=== PATIENT | female | born 1990 | race Caucasian/White ===

== ENCOUNTER 2016-08-21 09:06 | Emergency (ER) | payer BC ==
[2016-08-21 10:11] VITALS: BP 116/65
--- NOTE | 2016-08-21 12:01 | UC ---
Kathy Ellison Matthew, scribed for Salome Nicholas DO on 08/21/16 at 1025 . Throat Pain/Nasal Brandon HPI - HPI Summary HPI Summary: A 26 y/o female presents to [facility] with constant, gradually worsening sore throat since 4 days ago. The pain is rated 5/10 in severity. Associated symptoms include intermittent sinus headache, ear ache - comes and goes bilaterally, sinus congestion, very mild cough, and rhinorrhea. The patient denies SOB, difficulty breathing, neck pain, nausea, vomiting, dysuria, abdominal pain, body aches, chest pain, and fever. 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 - History of Current Complaint Chief Complaint: UCRespiratory Stated Complaint: SINUS CONGESTION, AND EAR ACHE Time Seen by Provider: 08/21/16 09:56 Hx Obtained From: Patient Hx Last Menstrual Period: 08/01/16 Onset/Duration: Gradual Onset, Lasting Days - since 4 days ago, Still Present Severity: Moderate Pain Intensity: 5 Pain Scale Used: 0-10 Numeric Cough: Other: - mild Associated Signs & Symptoms: Positive: Dysphagia, Sinus Discomfort, Nasal Discharge, Other - ear ache, intermittent sinus headache, rhinorrhea. Negative : Drooling, Wheezing, Hoarseness, Fever, Vomiting - Epiglottits Risk Factors Epiglottis Risk Factors: Negative - Allergies/Home Medications Allergies/Adverse Reactions: Allergies Allergy/AdvReac Type Severity Reaction Status Date / Time Penicillins Allergy Hives Verified 08/21/16 10:11 Home Medications: Home Medications Bupropion HCl [Bupropion HCl ER] 08/21/16 [History] Sertraline HCl [Zoloft] 100 mg PO 08/21/16 [History] PMH/Surg Hx/FS Hx/Imm Hx Previously Healthy: Yes Respiratory History Of: Denies: Asthma Psychological History Of: Reports: Anxiety - Surgical History Surgical History: None - Family History Known Family History: Negative: Cardiac Disease, Hypertension, Diabetes - Social History 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 Alcohol Use: Occasionally Substance Use Type: None Smoking Status (MU): Never Smoked Tobacco Review of Systems Constitutional: Negative Skin: Negative Eyes: Negative ENT: Sore Throat, Ear Ache, Nasal Discharge, Other - Sinus Congestion Respiratory: Negative Cardiovascular: Negative Gastrointestinal: Negative Genitourinary: Negative Motor: Negative Neurovascular: Negative Musculoskeletal: Negative Neurological: Headache - Sinus headache Psychological: Negative All Other Systems Reviewed And Are Negative: Yes Physical Exam Triage Information Reviewed: Yes Appearance: Well-Appearing, No Pain Distress, Well-Nourished Vital Signs: Initial Vital Signs Temp 98.1 F 08/21/16 10:07 Pulse 70 08/21/16 10:07 Resp 18 08/21/16 10:07 BP 116/65 08/21/16 10:07 Pulse Ox 98 08/21/16 10:07 Vital Signs Reviewed: Yes Eyes: Positive: Conjunctiva Clear. Negative: Discharge ENT: Positive: Hearing grossly normal, Pharyngeal erythema, Nasal congestion, Nasal drainage, TMs normal, Tonsillar swelling. Negative: Tonsillar exudate, Trismus, Muffled/hoarse voice Dental Exam: Normal Neck: Positive: Supple, Nontender Respiratory: Positive: Lungs clear, Normal breath sounds, No respiratory distress, No accessory muscle use Cardiovascular: Positive: RRR, No Murmur Musculoskeletal Exam: Normal Neurological: Positive: Alert, Muscle Tone Normal Psychological Exam: Normal Psychological: Positive: Age Appropriate Behavior Skin Exam: Normal Skin: Positive: Other - warm, dry, normal color Throat Pain/Nasal Course/Dx - Differential Dx/Diagnosis Differential Diagnosis/HQI/PQRI: Pharyngitis, Sinusitis, Tonsillitis Provider Diagnoses: SINUSITIS Discharge - Discharge Plan Condition: Stable Disposition: HOME Prescriptions: Azithromycin TAB* [Zithromax TAB (Z-NICKY)*] 0 mg PO .SEE INSTRUCTIONS #6 tab Patient Education Materials: Sinusitis (ED) Referrals: Chuy Daugherty MD [Medical Doctor] - Additional Instructions: TRY USING THE NETTI POT IN THE MORNINGS DISCUSSED. YOU MUST ALWAYS USE CLEAN WATER. REMEMBER, POSTURE IS AN IMPORTANT FACTOR IN SINUS DRAINAGE. MOVE YOUR NECK, BREATHE. ANTIBIOTICS ARE NOT CURRENTLY INDICATED FOR YOUR CONDITION. HOWEVER IF YOUR SYMPTOMS WORSEN OR PERSIST FOR MORE THAN 3-5 DAYS, YOU CAN START THE FOLLOWING ANTIBIOTICS. AZITHROMYCIN: Azithromycin (Zithromax) is a broad spectrum antibiotic in the same class as erythromycin. It can treat a variety of bacterial infections, but is most frequently used for respiratory infections. Azithromycin is extremely long-lasting. It accumulates in body tissues and continues to kill bacteria for many days. In order to improve absorption, Azithromycin should be taken at least one hour before or two hours after a meal. It does not have the same strong tendency to upset the stomach as erythromycin and is usually very well tolerated. Patients who have had a rash or other true allergic reactions to erythromycin should not take this medication. Call if you develop gastrointestinal distress, severe diarrhea, rash, hives, itching, or shortness of breath. ANY TIME YOU TAKE AN ANTIBIOTIC, IT IS IMPORTANT TO REPLENISH THE BODY'S BALANCE OF "GOOD" BACTERIA BY EATING HIGH QUALITY CULTURED FOOD SUCH YOGURT, SAURKRAUT OR VAMSHI CHI AND/OR TAKING A PROBIOTIC SUPPLEMENT. The documentation as recorded by the Kathy maravilla Matthew accurately reflects the service I personally performed and the decisions made by me, Salome Nicholas DO.
== END 2016-08-21 11:56 | disposition home or self-care (01) ==
LOC: UCEAST 09:06
DX: J01.90 Acute sinusitis, unspecified (principal); B96.89 Other specified bacterial agents as the cause of diseases classified elsewhere; Z88.0 Allergy status to penicillin
CPT/HCPCS: 87651; 99202; G0463

== ENCOUNTER 2017-07-09 07:13 | Emergency (ER) | payer BC ==
[2017-07-09 08:04] VITALS: BP 122/76
[2017-07-09] MEDS ORDERED: Azithromycin TAB* 250 MG PO ONE (09:00)
--- NOTE | 2017-07-11 17:55 | UC ---
Progress - Progress Note Progress Note: Throat culture with normal chuyita only - no strep. See how rash is today - if still present, needs f/u with PCP and/or OBGYN.
--- NOTE | 2017-07-23 17:20 | UC ---
Julius Ellison Alfonso, scribed for Salome Nicholas DO on 07/09/17 at 0749 . General HPI - HPI Summary HPI Summary: This patient is a 27 year old F presenting to [facility] with a chief complaint of a head cold since 1 week ago. The patient rates the pain 6/10 in severity. Symptoms aggravated by nothing. Symptoms alleviated by rest. Patient reports sinus congestion, rhinorrhea, sore throat (since 3 days ago, worse since last night, pain with swallowing and eating), bumps on my face, pruritus (back of neck and shoulders), diarrhea (2 times last night and not today), sinus headache (yesterday morning-now resolved), nonproductive coughing, and hot flashes. Patient denies fever, chills, vag bleeding, visual changes, contractions, swelling of hands and feet, abdominal pain, N/V, CP, SOB, weakness , dizziness, swelling, and urinary symptoms. She is currently 13 weeks . She denies new foods, detergents, soaps, and pet contacts. - History of Current Complaint Chief Complaint: UCGeneralIllness Stated Complaint: SORE THROAT, CONGESTED, RASH Time Seen by Provider: 07/09/17 07:36 Hx Obtained From: Patient Onset/Duration: Gradual Onset, Lasting Weeks - 1, Still Present Timing: Constant Current Severity: Moderate Pain Intensity: 6 - /10 Aggravating: nothing Alleviating: rest Associated Signs & Symptoms: Positive: Other - sinus congestion, rhinorrhea, sore throat (since 3 days ago, worse since last night, pain with swallowing and eating), bumps on my face, pruritus (back of neck and shoulders), diarrhea (2 times last night and not today), headache (yesterday morningsinus- now resolved) , nonproductive coughing, and hot flashes. Patient denies fever, chills, blood in the stools, abdominal bloating, abdominal pain, N/V, CP, SOB, weakness, dizziness, swelling, and urinary symptoms. 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 [ Gummies/Dha & Fo 0.4-32.5 mg] 1 tab PO DAILY 11/27/17 [History Confirmed 07/09/17] PMH/Surg Hx/FS Hx/Imm Hx Previously Healthy: No Psychological History: Anxiety - Surgical History Surgical History: Yes Surgery Procedure, Year, and Place: [place] Teeth extracton 2006; Bilateral Tubes x 2 as child - Family History Known Family History: Positive: Hypertension - Mother Negative: Cardiac Disease, Diabetes - Social History Lives: With Family Alcohol Use: None Substance Use Type: None Smoking Status (MU): Never Smoked Tobacco - Immunization History Most Recent Influenza Vaccination: Not UTD Review of Systems Constitutional: Other - "a head cold," hot flashes; negative fever, chills Skin: Other - bumps on my face, pruritus (back of neck and shoulders) ENT: Other - sinus congestion, rhinorrhea, sore throat (since 3 days ago, worse since last night, pain with swallowing and eating) Respiratory: Cough, Other - Negative SOB Cardiovascular: Other - Negative CP Gastrointestinal: Diarrhea, Other - Negative blood in the stools, abd bloating, abd pain, N/V Genitourinary: Negative Musculoskeletal: Other: - Negative swelling Neurological: Headache, Other - Negative weakness, dizziness All Other Systems Reviewed And Are Negative: Yes Physical Exam Triage Information Reviewed: Yes Appearance: Well-Appearing, No Pain Distress, Well-Nourished Vital Signs: Initial Vital Signs Temp 99.5 F 07/09/17 07:20 Pulse 96 07/09/17 07:20 Resp 18 07/09/17 07:20 BP 134/78 07/09/17 07:20 Pulse Ox 99 07/09/17 07:20 Vital Signs Reviewed: Yes Eyes: Positive: Conjunctiva Clear. Negative: Discharge ENT: Positive: Hearing grossly normal, Pharyngeal erythema, Tonsillar swelling - mild. Negative: Tonsillar exudate, Trismus, Hoarse voice Neck exam: Normal Neck: Positive: Supple Respiratory: Positive: Lungs clear, Normal breath sounds, No respiratory distress, No accessory muscle use Cardiovascular: Positive: RRR, No Murmur Abdomen Description: Positive: Nontender, Soft. Negative: Distended, Guarding Bowel Sounds: Positive: Present Musculoskeletal Exam: Normal Neurological: Positive: Alert, Muscle Tone Normal Psychological Exam: Normal Psychological: Positive: Age Appropriate Behavior Skin: Positive: Other - Warm. Dry. Faint erythematous sandpapery rash at face and knee. Course/Dx - Course Course Of Treatment: Two group A rapid strep tests are both negative. Medications reviewed. Allergies reviewed. Consulted Dr. Jackson (OBGYN) at 0837 regarding the patients case and plan for care. He does not feel this is related, but states that if the case looks like strep and we are not entirely trusting of the rapid strep tests, we should treat the patient with abx and send for cultures. Patient will be discharged with prescription for Z- Girma, and follow up from PCP and OBGYN. The patient is agreeable with this plan. - Differential Dx - Multi-Symptom Provider Diagnoses: strep throat - Physician Notifications Discussed Patient Care With: Oskar Jackson Time Discussed With Above Provider: 08:37 Discharge - Discharge Plan Condition: Stable Disposition: HOME Prescriptions: Azithromycin TAB* [Zithromax TAB (Z-GIRMA) 250 mg #6 tabs] 250 mg PO DAILY #4 tab Patient Education Materials: Strep Throat (ED) Forms: *Work Release Referrals: Gayathri Casillas MD [Medical Doctor] - 1 Week Chuy Daugherty MD [Primary Care Provider] - 2 Days Additional Instructions: YOUR RAPID STREP TEST WAS NEGATIVE TWO TIMES. STILL YOUR RASH LOOKS LIKE STREP. SO WE ARE SENDING IN A CULTURE TO CONFIRM. WE DID SPEAK WITH THE RUBBER TUBING SPLICER FOR YOUR OB WHO SAID THAT YOUR SYMPTOMS DO NOT APPEAR TO BE RELATED. HOWEVER, IF THE CLINICAL PICTURE IS HIGHLY SUSPICIOUS FOR STREP, WE CAN TREAT YOU MORE PROACTIVELY BECAUSE YOU ARE . SO WE WILL START TREATMENT WHILE WE WAIT FOR CULTURE RESULTS. AZITHROMYCIN: Azithromycin (Zithromax) is a broad spectrum antibiotic in the same class as erythromycin. It can treat a variety of bacterial infections, but is most frequently used for respiratory infections. Azithromycin is extremely long-lasting. It accumulates in body tissues and continues to kill bacteria for many days. In order to improve absorption, Azithromycin should be taken at least one hour before or two hours after a meal. It does not have the same strong tendency to upset the stomach as erythromycin and is usually very well tolerated. Patients who have had a rash or other true allergic reactions to erythromycin should not take this medication. Call if you develop gastrointestinal distress, severe diarrhea, rash, hives, itching, or shortness of breath. ANYTIME YOU TAKE AN ANTIBIOTIC, IT IS IMPORTANT TO REPLENISH THE BODY'S SUPPLY OF "GOOD BACTERIA." YOU CAN GET GOOD BACTERIA FROM HIGH QUALITY CULTURED FOODS SUCH LOCAL YOGURT, SOUR KRAUT, VAMSHI JANI, NATURALLY FERMENTED PICKLES AND PROBIOTIC DRINKS. YOU CAN ALSO GET GOOD BACTERIA FROM A PROBIOTIC SUPPLEMENT. The documentation as recorded by the Julius maravilla Alfonso accurately reflects the service I personally performed and the decisions made by me, Salome Nicholas DO.
== END 2017-07-09 09:09 | disposition home or self-care (01) ==
LOC: UCEAST 07:13
DX: O26.891 Other specified pregnancy related conditions, first trimester (principal); J02.0 Streptococcal pharyngitis; Z3A.13 13 weeks gestation of pregnancy; Z88.0 Allergy status to penicillin; F41.9 Anxiety disorder, unspecified
CPT/HCPCS: 87070; 87651; 99212; A9270-GY; G0463

== ENCOUNTER 2017-12-18 18:56 | Inpatient (IN) | payer BC ==
[2017-12-18] MEDS ORDERED: Dinoprostone* 10 MG VAG.SUPP VAGINAL ONE (19:15)
--- NOTE | 2017-12-18 20:17 | PN ---
L&D Outpatient: Visit - Reproductive Information Estimated Due Date: 01/13/18 Gestational Age: 36 Weeks and 2 Days : 2 Para: 0 - Reason for Visit Visit Reason: Patient with an IUP at 36+ weeks EGA, sent to LD for cervical ripening in preparation for induction of labor. - Antepartal Records Antepartal Record: Reviewed, Complicated by: - Pre-eclampsia - Patient History Patient History Significant For: Depression /Anxiety Seasonal Allergies L&D Outpatient: ROS - Review of Systems Constitutional: Comfortable CV Complaint: No Respiratory: Shortness of Breath: No Gastrointestinal: No Nausea/Vomiting, Normal Bowel Movement Genitourinary: No Dysuria, No Bleeding, No Leaking Fluid Musculoskeletal: No Complaint Movement: Normal - No headaches, visual changes or abdominal pain. L&D Outpatient: Exam Vitals - Most Recent: Weigyht 215 lbs Height 5'4" Temp 99.1 BP 147/82 P 81 RR 22 Pox 96% RA - Cervical Exam Cervical Exam: Fingertip/70-80% effaced/Cephalic at minus 2-3 station. - Abdominal Exam Abdomen Exam: Non-Tender, Fundal Height Consistent with Dates - Membranes Membrane Status: Intact - Ultrasound/Biophysical Profile Ultrasound Status: Not Done Biophysical Profile: Normal Reactive NST L&D Outpatient: EFM - External Monitor Findings Baseline Heart Rate: 140 External Monitor Findings: Accelerations Present L&D Outpatient: Asses/Plan Assessment: at 36 weeks with pre-eclampsia her for cervical ripening. - Discharge Diagnosis Discharge Diagnosis: PreEclampsia - Cervidil cervical ripening and observe.
--- NOTE | 2017-12-19 10:45 | HP ---
General Information - General Information Maternal Age: 27 Grav: 2 Para: 0 SAB: 1 IEA: 0 Estimated Due Date: 01/13/18 Determined By: Early Ultrasound Gestational Age in Weeks and Days: 36 Weeks and 2 Days Maternal Blood Type and Rh: O Positive - Results this Serology/RPR Result: Non-Reactive Rubella Result: Immune HBsAg Result: Negative HIV Result: Negative GBS Culture Result: Negative Past Medical History Delivery History: See Records Pertinent Past Medical History: Non-Contributory Pertinent Past Surgical History: None Pertinent Family History: Non-Contributory - Antepartal Records Antepartal Records: Reviewed, Complicated by: - preeclampsia Review of Systems Constitutional: Comfortable CV Complaint: No Respiratory: Shortness of Breath: No Gastrointestinal: No Nausea/Vomiting Genitourinary: No Bleeding, No Leaking Fluid Movement: Normal - Comments pt has had a persistent headache. not severe Exam Allergies/Adverse Reactions: Allergies Penicillins Allergy (Intermediate, Verified 12/19/17 06:14) Hives - Measurements Height: 5 ft 4 in Weight: 215 lb Weight in lbs: 215 Body Mass Index (BMI): 36.8 Pre- Weight: 153 lb Weight Gained This : 62 lbs and 0 ozs - Exam Abdomen: No Upper Quadrant Pain CVA: No CVA Tenderness Extremities: Edema - 3+ Heart: Normal Rhythm/Heart Sounds HEENT: No Significant Findings Lungs: Clear Bilaterally Targeted Exam Findings See L&D Outpatient Visit Provider Note for Findings: Yes Presenting Part: Vertex Membrane Status: Intact EFM Findings - External Monitor Findings Baseline Heart Rate: 135 External Monitor Findings: Accelerations Present, Variability Moderate Contractions: Regular Assessment/Plan - Reason for Visit Reason for Visit: preeclampsia . mild with headache. received steroids over weekend . plane was to induce on Sunday at 37 weeks but with persistent headache concern over devloping more severe features. lab work is negative for LFT or platelet changes - Obstetrical Risk Factors Obstetrical Risk Factors: Proteinuria, PreEclampsia - Plan Plan: Induction
[2017-12-19 11:46] LABS: Hematocrit 40 % (35-47); Hemoglobin 13.5 g/dl (12.0-16.0); Mean Corpuscular HGB Conc 34 g/dl (31-36); Mean Corpuscular Hemoglobin 30 pg (27-31); Mean Corpuscular Volume 88 fL (80-97); Mean Platelet Volume 9.1 um3 (7.4-10.4); Platelet Count 231 10^3/ul (150-450); Red Blood Count 4.54 10^6/ul (4.0-5.4); Red Cell Distribution Width 15 % (10.5-15); White Blood Count 17.2 10^3/ul (3.5-10.8)
[2017-12-19] MEDS ORDERED: OBEPIDURAL* 250 ML EPIDURAL ONE (11:50)
[2017-12-19 12:05] LABS: ABS Basophils 0.1 10^3/ul (0-0.2); ABS Eosinophils 0 10^3/ul (0-0.6); ABS Lymphocytes 1.6 10^3/ul (1.0-4.8); ABS Monocytes 1.1 10^3/ul (0-0.8); ABS Neutrophils 14.4 10^3/ul (1.5-7.7); ABS Nucleated RBC 0 10^3/ul; Eosinophil % 0.2 % (0-6); Lymphocyte % 9.3 % (25-47); Nucleated Red Blood Cells % 0.1
[2017-12-19 12:11] LABS: EGFR Non-African American 94.9 (>60)
[2017-12-19] MEDS ORDERED: Phenylephrine IV* 40 MCG/ML 10 ML SYRINGE IV PUSH PRN ×2 (13:05)
[2017-12-19] MEDS ORDERED: Sodium Citrate/Citric Acid* 15 ML UDC PO PRN (13:05)
[2017-12-19] MEDS ORDERED: EPHEDrine (Pressors)* 50 MG/ML VIAL IV PUSH PRN ×2 (13:05)
[2017-12-19] MEDS ORDERED: Famotidine TAB* 20 MG PO PRN (13:05)
[2017-12-19] MEDS ORDERED: OBEPIDURAL* 250 ML EPIDURAL SCH (14:00)
[2017-12-19] MEDS ORDERED: Oxytocin in LR* 20 UNITS/1,000 ML BAG IVPB SCH (15:00)
[2017-12-19] MEDS ORDERED: Oxytocin in LR* 20 UNITS/1,000 ML BAG IVPB ONE (15:09)
[2017-12-20] MEDS ORDERED: Witch Hazel PAD* JAR ONE (00:57)
[2017-12-20] MEDS ORDERED: Lidocaine 2.5%/Prilocain 2.5%* 5 GM TUBE ONE (00:57)
[2017-12-20] MEDS ORDERED: Dibucaine 1% 28.35 GM TUBE ONE (01:01)
[2017-12-20] MEDS ORDERED: Glycerin ADULT SUPP PR PRN (01:07)
[2017-12-20] MEDS ORDERED: Ibuprofen TAB* 600 MG ONE (01:51)
[2017-12-20] MEDS: Ibuprofen TAB* 600 MG PO PRN ×2 (01:53→20:55)
[2017-12-20] MEDS: Dibucaine 1% 28.35 GM TUBE PR PRN ×2 (01:54→06:43)
[2017-12-20] MEDS: Witch Hazel PAD* JAR TOPICAL PRN ×2 (01:54→06:43)
[2017-12-20] MEDS ORDERED: Oxytocin in LR* 20 UNITS/1,000 ML BAG IVPB SCH (02:00)
[2017-12-20] MEDS ORDERED: Simethicone TAB* 80 MG TAB.CHEW PO SCH (08:30)
[2017-12-20] MEDS: Docusate CAP* 100 MG PO SCH ×3 (08:51→20:54)
[2017-12-21] MEDS: Witch Hazel PAD* JAR TOPICAL PRN ×2 (04:44→17:48)
[2017-12-21] MEDS: Ibuprofen TAB* 600 MG PO PRN ×3 (04:44→20:23)
[2017-12-21 07:10] LABS: ABS Basophils 0 10^3/ul (0-0.2); ABS Eosinophils 0.1 10^3/ul (0-0.6); ABS Lymphocytes 2.5 10^3/ul (1.0-4.8); ABS Monocytes 0.6 10^3/ul (0-0.8); ABS Nucleated RBC 0 10^3/ul; Eosinophil % 1.2 % (0-6); Hematocrit 28 % (35-47); Hemoglobin 9.7 g/dl (12.0-16.0); Lymphocyte % 24.5 % (25-47); Mean Corpuscular HGB Conc 35 g/dl (31-36); Mean Corpuscular Hemoglobin 31 pg (27-31); Mean Corpuscular Volume 89 fL (80-97); Mean Platelet Volume 8.3 um3 (7.4-10.4); Nucleated Red Blood Cells % 0; Platelet Count 175 10^3/ul (150-450); Red Blood Count 3.13 10^6/ul (4.0-5.4); Red Cell Distribution Width 15 % (10.5-15); White Blood Count 10.3 10^3/ul (3.5-10.8)
[2017-12-21] MEDS: Acetaminophen TAB* 325 MG PO PRN ×3 (09:46→20:23)
[2017-12-21] MEDS: Ferrous Gluconate TAB* 324 MG TAB PO SCH ×2 (09:46→20:23)
[2017-12-21] MEDS: Dibucaine 1% 28.35 GM TUBE PR PRN (09:46)
[2017-12-21] MEDS: Docusate CAP* 100 MG PO SCH ×2 (09:46→14:42)
[2017-12-22 08:10] VITALS: BP 141/86
[2017-12-22] MEDS: Dibucaine 1% 28.35 GM TUBE PR PRN (08:12)
[2017-12-22] MEDS: Witch Hazel PAD* JAR TOPICAL PRN ×2 (08:12→17:19)
[2017-12-22] MEDS: Acetaminophen TAB* 325 MG PO PRN ×2 (08:12→15:34)
[2017-12-22] MEDS: Docusate CAP* 100 MG PO SCH ×3 (08:13→19:18)
[2017-12-22] MEDS: Ibuprofen TAB* 600 MG PO PRN ×2 (08:13→15:34)
[2017-12-22] MEDS: Ferrous Gluconate TAB* 324 MG TAB PO SCH ×2 (08:14→19:18)
== END 2017-12-22 19:27 | disposition home or self-care (01) | DRG 560 ==
LOC: MCHOBOUT 18:56 → MCHOB 12-19 07:43
PROVIDERS: ADMIT Obstetrics & Gynecology; ATTEND Obstetrics & Gynecology
PROC: 10907ZC Drainage of Amniotic Fluid, Therapeutic from Products of Conception, Via Natural or Artificial Opening (ICD-10-PCS; principal; 2017-12-19)
PROC: 3E0P7VZ Introduction of Hormone into Female Reproductive, Via Natural or Artificial Opening (ICD-10-PCS; 2017-12-19)
PROC: 3E033VJ Introduction of Other Hormone into Peripheral Vein, Percutaneous Approach (ICD-10-PCS; 2017-12-19)
PROC: 4A1HXCZ Monitoring of Products of Conception, Cardiac Rate, External Approach (ICD-10-PCS; 2017-12-19)
PROC: 0KQM0ZZ Repair Perineum Muscle, Open Approach (ICD-10-PCS; 2017-12-20)
PROC: 10E0XZZ Delivery of Products of Conception, External Approach (ICD-10-PCS; 2017-12-20)
DX: O14.94 Unspecified pre-eclampsia, complicating childbirth (principal); O70.1 Second degree perineal laceration during delivery; O41.8X30 Other specified disorders of amniotic fluid and membranes, third trimester, not applicable or unspecified; O90.81 Anemia of the puerperium; O69.81X0 Labor and delivery complicated by cord around neck, without compression, not applicable or unspecified; Z37.0 Single live birth; Z3A.36 36 weeks gestation of pregnancy
CPT/HCPCS: 36415; 59200; 80053; 85025; 86850; 86900; 86901; A9270-GY